=== PATIENT | female | born 1975 | race Caucasian/White ===

== ENCOUNTER 2017-01-23 13:54 | Emergency (ER) | payer MEDICAID ==
[~2017-01-23] VITALS: Ht 154.9 cm; Wt 112.3 kg
[~2017-01-23 13:54] MED LIST: CITA20TA9 PO; FLUO20CA19 PO; INSU100V11; METF10002 PO; OMEP-110 PO
[2017-01-23] MEDS ORDERED: SODIUM CHLORIDE 0.9% 1,000ML IVBOLUS ONE (15:30)
[2017-01-23] MEDS ORDERED: FAMOTIDINE 20 MG/2 ML IVP ONE (15:30)
[2017-01-23] MEDS ORDERED: MAALOX/HYOSCYAMINE/LIDOCAINE 45 ML BTL PO ONE (15:30)
[2017-01-23] MEDS ORDERED: ONDANSETRON 2MG/ML, 2ML IVPush ONE ×2 (15:30→18:30)
[2017-01-23 15:51] LABS: HEMATOCRIT 39.5 % (34.6-47.8); HEMOGLOBIN 13.2 g/dL (11.7-16.4); WHITE BLOOD COUNT 14.1 x10^3/uL (3.4-10)
[2017-01-23 15:55] LABS: HCG UR LOT HCG7030192
[2017-01-23] MEDS ORDERED: MAALOX/HYOSCYAMINE/LIDOCAINE 45 ML BTL ONE (15:58)
[2017-01-23] MEDS ORDERED: ONDANSETRON 2MG/ML, 2ML ONE ×2 (15:58→18:14)
[2017-01-23] MEDS ORDERED: morphine SULFATE 10 MG/ML, 1ML ONE ×2 (15:58→16:38)
[2017-01-23 15:59] LABS: HCG UR OBC PASS
[2017-01-23 16:02] LABS: ASPARTATE AMINO TRANSFERASE 8 U/L (15-37); BLOOD UREA NITROGEN 3 mg/dL (7-18)
[2017-01-23] MEDS: MORPHINE SULFATE 4 MG/ML, 1ML IVPush PRN ×2 (16:09→16:45)
[2017-01-23] MEDS ORDERED: FAMOTIDINE 20 MG/2 ML ONE (16:38)
[2017-01-23 19:46] VITALS: BP 108/59
== END 2017-01-23 19:49 | disposition home or self-care (01) ==
LOC: ED 18:52
DX: R10.11 Right upper quadrant pain (principal); R10.13 Epigastric pain; Z90.49 Acquired absence of other specified parts of digestive tract; E11.65 Type 2 diabetes mellitus with hyperglycemia
CPT/HCPCS: 36415; 74176; 80053; 81003; 81025; 83690; 84703; 85025; 96361; 96374; 96375; 96376; 99285; J2405; J7030; S0028

== ENCOUNTER 2017-02-22 22:33 | Emergency (ER) | payer MEDICAID, OTHER ==
[~2017-02-22] VITALS: Ht 154.9 cm; Wt 111.0 kg
[2017-02-22 22:36] VITALS: BP 113/81
== END 2017-02-23 00:42 | disposition home or self-care (01) ==
LOC: ED 02-23 00:30
DX: S43.51XA Sprain of right acromioclavicular joint, initial encounter (principal); S80.211A Abrasion, right knee, initial encounter; S99.912A Unspecified injury of left ankle, initial encounter; E11.65 Type 2 diabetes mellitus with hyperglycemia; D72.829 Elevated white blood cell count, unspecified; J45.909 Unspecified asthma, uncomplicated; W01.0XXA Fall on same level from slipping, tripping and stumbling without subsequent striking against object, initial encounter; Y93.01 Activity, walking, marching and hiking; Y99.0 Civilian activity done for income or pay; Y92.69 Other specified industrial and construction area as the place of occurrence of the external cause
CPT/HCPCS: 99284

== ENCOUNTER 2017-09-10 08:08 | Emergency (ER) | payer MEDICAID ==
[~2017-09-10] VITALS: Ht 154.9 cm; Wt 230.0 kg
[2017-09-10 09:03] VITALS: BP 121/72
[2017-09-10 09:48] LABS: MICROSCOPIC NOT IND
[2017-09-10] MEDS ORDERED: LOPERAMIDE 2 MG CAPSULE ONE (09:52)
[2017-09-10] MEDS ORDERED: MAALOX/HYOSCYAMINE/LIDOCAINE 45 ML BTL ONE (09:53)
[2017-09-10] MEDS ORDERED: ATOR10TA9 PO (09:55)
[2017-09-10] MEDS ORDERED: INSULIN (09:56)
[2017-09-10] MEDS ORDERED: VARE0.5T PO (09:56)
[2017-09-10] MEDS ORDERED: MAALOX/HYOSCYAMINE/LIDOCAINE 45 ML BTL PO ONE (10:00)
[2017-09-10] MEDS ORDERED: LOPERAMIDE 2 MG CAPSULE PO ONE (10:00)
[2017-09-10 10:06] LABS: BASOPHILS # (AUTO) 0.02 x10^3/uL (0-0.1); BASOPHILS % (AUTO) 0 % (0-1); EOSINOPHILS # (AUTO) 0.09 x10^3/uL (0-0.4); EOSINOPHILS % (AUTO) 1 % (1-7); LYMPHOCYTES # (AUTO) 2.71 x10^3/uL (1-3.4); LYMPHOCYTES % (AUTO) 26 % (22-44); MD NO; MEAN CORPUSCULAR HEMOGLOBIN 27.2 pg (27.0-34.8); MEAN CORPUSCULAR HGB CONC 32.8 g/dL (32.4-35.8); MEAN CORPUSCULAR VOLUME 82.9 fL (80-100); MEAN PLATELET VOLUME 9.5 fL (7.4-10.4); MONOCYTES # (AUTO) 0.37 x10^3/uL (0.2-0.8); MONOCYTES % (AUTO) 4 % (2-9); NEUTROPHILS % (AUTO) 69 % (42-75); PLATELET COUNT 319 x10^3/uL (130-400); RED CELL DISTRIBUTION WIDTH 15.4 % (9.6-15.2)
[2017-09-10 10:17] LABS: ALANINE AMINOTRANSFERASE 26 U/L (12-78); ALBUMIN 3.2 g/dL (3.4-5.0); ANION GAP 8 mmol/L (5-15); CALCIUM 8.4 mg/dL (8.5-10.1); CHLORIDE 105 mmol/L (98-107)
[2017-09-10 10:22] LABS: ALKALINE PHOSPHATASE 89 U/L (45-117); BILIRUBIN,TOTAL 0.2 mg/dL (0.2-1.0); CREATININE 0.55 mg/dL (0.55-1.02); TOTAL PROTEIN 7.6 g/dL (6.4-8.2)
== END 2017-09-10 11:38 | disposition home or self-care (01) ==
LOC: ED 11:00
DX: K52.9 Noninfective gastroenteritis and colitis, unspecified (principal); E11.9 Type 2 diabetes mellitus without complications; F17.200 Nicotine dependence, unspecified, uncomplicated
CPT/HCPCS: 36415; 74021; 80053; 81003; 83690; 84703; 85025; 99285

== ENCOUNTER 2019-08-18 19:28 | Emergency (ER) | payer MEDICAID, OTHER ==
[~2019-08-18] VITALS: Ht 154.9 cm; Wt 70.3 kg
[~2019-08-18 19:28] MED LIST changes: +ATOR10TA9 PO; +INSULIN; +VARE0.5T PO
[2019-08-18] MEDS ORDERED: PROMETHAZINE 25MG TABLET ONE (20:25)
--- NOTE | 2019-08-18 20:27 | NUR ---
INSTRUMENT AND ELECTRICAL TECHNICIAN PER MAR.
[2019-08-18 20:29] LABS: BASOPHILS # (AUTO) 0.06 x10^3/uL (0-0.1); BASOPHILS % (AUTO) 1 % (0-1); EOSINOPHILS # (AUTO) 0.14 x10^3/uL (0-0.4); EOSINOPHILS % (AUTO) 1 % (1-7); LYMPHOCYTES # (AUTO) 3.04 x10^3/uL (1-3.4); LYMPHOCYTES % (AUTO) 32 % (22-44); MD NO; MEAN CORPUSCULAR HEMOGLOBIN 27.5 pg (27.0-34.8); MEAN CORPUSCULAR HGB CONC 32.2 g/dL (32.4-35.8); MEAN CORPUSCULAR VOLUME 85.3 fL (80-100); MEAN PLATELET VOLUME 8.3 fL (7.4-10.4); MONOCYTES # (AUTO) 0.56 x10^3/uL (0.2-0.8); MONOCYTES % (AUTO) 6 % (2-9); NEUTROPHILS # (AUTO) 5.73 x10^3/uL (1.8-6.8); NEUTROPHILS % (AUTO) 60 % (42-75); PLATELET COUNT 313 x10^3/uL (130-400); RED BLOOD COUNT 4.58 x10^6/uL (3.82-5.3); RED CELL DISTRIBUTION WIDTH 15.6 % (9.6-15.2)
[2019-08-18 20:30] VITALS: BP 121/80
[2019-08-18] MEDS ORDERED: PROMETHAZINE 25MG TABLET PO PRN (20:30)
[2019-08-18 20:39] LABS: ALBUMIN 3.4 g/dL (3.4-5.0); ANION GAP 5 mmol/L (5-15); CALCIUM 8.6 mg/dL (8.5-10.1); CHLORIDE 105 mmol/L (98-107); CREATININE 0.57 mg/dL (0.55-1.02)
[2019-08-18 20:43] LABS: TROPONIN I < 0.015 ng/mL (0.000-0.045)
--- NOTE | 2019-08-18 20:59 | NUR ---
ALL RESULTS ARE BACK AT THIS TIME. CHART UP FOR RECHECK.
--- NOTE | 2019-08-18 21:16 | NUR ---
MD AT BEDSIDE TO UPDATE PT ON POC.
== END 2019-08-18 21:47 ==
LOC: ED 21:41
DX: R00.2 Palpitations (principal); R11.2 Nausea with vomiting, unspecified; R53.1 Weakness; R94.31 Abnormal electrocardiogram [ECG] [EKG]; I10 Essential (primary) hypertension; E11.9 Type 2 diabetes mellitus without complications; Z90.49 Acquired absence of other specified parts of digestive tract
CPT/HCPCS: 36415; 71045; 80048; 82040; 83735; 84484; 85025; 93005; 99285; Q0169